=== PATIENT | male | born 1985 | race Two or more races ===

== ENCOUNTER 2025-06-12 13:42 | Observation (INO) ==
--- NOTE | 2025-06-12 14:45 | Emergency Department Note ---
Impression & Plan Appendicitis ED Provider Note CHIEF COMPLAINT: Abdominal and back pain HISTORY OF PRESENTING ILLNESS: This 39-year-old male patient presents to the emergency department with his significant other for evaluation of right sided abdominal pain as well as right flank pain. Symptoms started at 1 PM yesterday. Movement makes the pain worse and the symptoms are getting progressively worse. Denies any fevers. Denies nausea or vomiting. Denies chest pain or SOB. Denies any urinary symptoms or problems with his BMs. He denies any chronic abdominal problems or abdominal surgeries. He has not taken anything for his symptoms yet other than omeprazole 20 mg x 1 dose. He ate 3 slices of bread and had tea at 9:30 am. He then ate rice at 12 pm and had water at 1:30 or 2 pm (maximum 200 ml per patient). REVIEW OF SYSTEMS: See HPI for pertinent positives and pertinent negatives. ALLERGIES: NKDA MEDICATIONS: Levothyroxine, cholesterol medication, Singulair PAST MEDICAL HISTORY: Hypothyroidism, high cholesterol, allergic rhinitis PHYSICAL EXAM: VITALS: Vitals are noted on the nurse's note and reviewed by myself. GENERAL: Non toxic, in no acute distress, non-diaphoretic. SKIN: Capillary refill <2 sec. EYES: PERRLA. EOMI. Conjunctivae without injection, sclerae without icterus. NOSE: Patent without discharge. MOUTH: Mucous membranes moist. Uvula midline. Airway patent. NECK: Supple without nuchal rigidity. HEART: Regular rate and rhythm without murmurs gallops or rubs. LUNGS: Clear to auscultation bilaterally without wheezes, rales or rhonchi. No retractions or accessory muscle use. ABDOMEN: Positive bowel sounds x 4. Normal tympanic percussion. Soft, tender to palpation on the right side of the abdomen, but worse in the right lower quadrant. No masses or hepatosplenomegaly. Lopez sign negative. No CVA tenderness. No guarding, rigidity, or rebound tenderness. MUSCULOSKELETAL: No gross musculoskeletal defects. NEURO: Patient was alert and oriented. No focal neurological deficits. DIFFERENTIAL DIAGNOSIS: Differential diagnosis includes hepatitis, pancreatitis, cholecystitis, cholelithiasis, appendicitis, kidney stone, pyelonephritis, UTI, gastritis, gastroenteritis, mesenteric adenitis, obstruction, constipation, hernia, abdominal abscess, perforation, diverticulitis, IBD, ischemic colitis, abdominal aortic aneurysm, testicular torsion, prostatitis, or others. ED COURSE AND MEDICAL DECISION MAKING: MEDICATIONS GIVEN: 1 L normal saline solution bolus. Tylenol 1000 mg IV. Pepcid 20 mg IV. Zofran 4 mg IV. Morphine 4 mg IV. Zosyn 4.5 g IV. INTERPRETATION OF LABS: I interpreted the labs with full lab results as below in the lab section of this note. Laboratory results pertinent to the emergent complaint are discussed in the MDM section below. The patient was advised to follow up with their PCP and/or specialist(s) for further outpatient monitoring and management of any abnormal results. INTERPRETATION OF IMAGING: Imaging studies were interpreted by myself and read by radiology as per the imaging section of this note. The patient was advised to follow up with their PCP and/or specialist(s) for further outpatient management of any non-emergent abnormal findings. CT scan of the abdomen and pelvis with IV contrast showed acute appendicitis with no evidence for perforation or abscess. There is a minimal amount of pelvic ascites. CONSULTATIONS: Dr. Grimes of general surgery MDM SUMMARY: The patient was seen during a time of extreme volume and extreme acuity. Nursing triage protocols were initiated with IV lock, labs, and/or imaging studies conducted by protocol in the triage area. The patient was initially evaluated in a triage room and then re-evaluated once they were taken back to an exam room. The patient started with right sided abdominal and flank pain yesterday at 1 PM. Symptoms are getting progressively worse. The patient was given IV fluids and medicated as above for his symptoms. White blood cell count elevated at 12.90. Hemoglobin slightly low at 13.2. Platelet count normal at 243. Glucose 118, but CMP otherwise normal. Lipase normal. Urinalysis with trace glucose, but otherwise normal. CT scan of the abdomen and pelvis with IV contrast showed acute appendicitis with no evidence for perforation or abscess. There is a minimal amount of pelvic ascites. The patient was given Zosyn's 4.5 g IV. I spoke with Dr. Grimes of general surgery who presented to the emergency department for further evaluation of the patient. The patient has elected to undergo conservative treatment with IV antibiotics rather than surgical intervention. The patient will be admitted by general surgery for further evaluation and treatment. Please refer to their dictation for further details. The patient's care was transferred in stable condition. DIAGNOSIS: Acute appendicitis Past Med/Surg History Problem List (Updated 06/13/25 @ 00:38 by Kaity Sanders PA-C) Appendicitis (Acute) Social History Smoking Status: Never smoker Preferred Language: Vietnamese Feels Safe at Home: Yes Allergies Allergies Allergy/AdvReac Type Severity Reaction Status Date / Time No Known Allergies Allergy Verified 06/12/25 20:06 Home Meds Home Medications Medication Instructions Recorded Confirmed levothyroxine 100 mcg tablet See Rx Instructions .Route .COMPLEX 06/12/25 06/12/25 montelukast 10 mg tablet 10 mg PO HS 06/12/25 06/12/25 rosuvastatin 10 mg tablet 10 mg PO HS 06/12/25 06/12/25 Results & Data (ED) Vital Signs Vital Signs - 24 hr 06/12/25 13:43 Temperature 36.6 C Temperature Source Temporal Artery Scan Pulse Rate 85 Respiratory Rate 18 Blood Pressure 130/89 Blood Pressure Mean 102 Pulse Oximetry 97 Sepsis Recent Fever Within 48 Hours No Sepsis New/Unexplained Change in Mental Status N/A Sepsis Action Taken by Nursing No Action Required Laboratory Data 06/12/25 14:35 06/12/25 14:35 Lab Results 06/12/25 Range/Units 14:35 WBC 12.90 H (4.8-10.8) K/ul RBC 4.39 L (4.70-6.10) M/uL Hgb 13.2 L (14.0-18.0) g/dl Hct 38.5 L (42.0-52.0) % MCV 87.7 (80.0-100.0) fL MCH 30.1 (25.0-34.0) pg MCHC 34.3 (32.0-36.0) g/dL RDW Std Deviation 43.0 (36.4-46.3) fL RDW Coeff of Seema 13.4 (11.5-14.5) % Plt Count 243 (130-400) K/uL MPV 10.7 (9.4-12.4) fL Immature Gran % (Auto) 0.3 % Neut % (Auto) 83.8 % Lymph % (Auto) 9.5 % [place] % (Auto) 5.3 % Eos % (Auto) 0.6 % Baso % (Auto) 0.5 % Neut # (Auto) 10.81 H (1.40-6.50) K/uL Lymph # (Auto) 1.22 (1.20-3.40) K/uL [place] # (Auto) 0.69 H (0.11-0.59) K/uL Eos # (Auto) 0.08 (0.00-0.50) K/uL Baso # (Auto) 0.06 (0.00-0.20) K/uL Immature Gran # (Auto) 0.04 (0.01-0.20) K/uL Sodium 137 (136-145) mmol/L Potassium 3.9 (3.5-5.1) mmol/L Chloride 103 (98-107) mmol/L Carbon Dioxide 28 (21-32) mmol/L Anion Gap 6 (3-11) BUN 10 (6-23) mg/dl Creatinine 0.96 (0.6-1.4) mg/dl Est Cr Clr Drug Dosing 94.1 ml/min eGFR 103.76 BUN/Creatinine Ratio 10.4 (10-20) Glucose 118 H (70-99(Fasting)) mg/dl Calcium 9.5 (8.6-10.3) mg/dl Total Bilirubin 0.6 (0.2-1.0) mg/dl AST 16 (13-39) U/L ALT 20 (7-52) U/L Alkaline Phosphatase 75 (34-104) U/L Total Protein 7.6 (6.0-8.3) gm/dl Albumin 4.4 (3.4-5.0) gm/dl Globulin 3.2 (2.5-4.0) gm/dl Albumin/Globulin Ratio 1.4 (0.9-2) Lipase 12 (11-82) U/L Urine Color Yellow Urine Appearance Clear (Clear) Urine pH 7.5 (4.5-7.5) Ur Specific [place] 1.003 (1.000-1.030) Urine Protein Negative (Negative) Urine Glucose (UA) Trace H (Negative) Urine Ketones Negative (Negative) Urine Blood Negative (Negative) Urine Nitrite Negative (Negative) Urine Bilirubin Negative (Negative) Urine Urobilinogen Negative (Negative) Ur Leukocyte Esterase Negative (Negative) Urine Comment Administered Medications Piperacillin Sod/Tazobactam Sod (Zosyn) 4.5 gm in 100 mls @ 25 mls/hr IV Q8H [facility]; Protocol Stop: 06/22/25 21:59 Last Admin: 06/12/25 22:44 Dose: 25 mls/hr Documented By: alisia Lactated Ringer's (Lr) 1,000 mls @ 80 mls/hr IV .[id number] LETICIA Stop: 06/15/25 20:16 Last Admin: 06/12/25 20:28 Dose: 80 mls/hr Documented By: alisia Morphine Sulfate (Morphine Sulfate 4 Mg/Ml 1 Ml Carp\Vial) 1 - 2 mg IV Q3H PRN PRN Reason: Pain Stop: 06/26/25 20:16 Last Admin: 06/12/25 23:10 Dose: 2 mg Documented By: alisia Discontinued Medications Sodium Chloride (Nss) 1,000 mls @ 999 mls/hr IV .[id number] ONE Stop: 06/12/25 15:57 Last Infusion: 06/12/25 17:38 Dose: Infused Documented By: Admin: 06/12/25 16:27 Dose: 999 mls/hr Documented By: Acetaminophen (Ofirmev) 1,000 mg in 100 mls @ 400 mls/hr IV NOW STA Stop: 06/12/25 15:11 Last Infusion: 06/12/25 17:38 Dose: Infused Documented By: Admin: 06/12/25 16:27 Dose: 400 mls/hr Documented By: Famotidine (Pepcid 20mg Iv Push) 20 mg in 5 mls @ 2.5 mls/min IV NOW STA Stop: 06/12/25 14:58 Last Admin: 06/12/25 16:28 Dose: 2.5 mls/min Documented By: Piperacillin Sod/Tazobactam Sod (Zosyn) 4.5 gm in 100 mls @ 200 mls/hr IV NOW ONE; Protocol Stop: 06/12/25 17:21 Last Infusion: 06/12/25 18:16 Dose: Infused Documented By: G Admin: 06/12/25 17:37 Dose: 200 mls/hr Documented By: Ioversol (Optiray 320 100ml) 94 ml IV ONCE ONE Stop: 06/12/25 16:21 Last Admin: 06/12/25 16:20 Dose: 94 ml Documented By: ELMER Morphine Sulfate (Morphine Sulfate 4 Mg/Ml 1 Ml Carp\Vial) 4 mg IV NOW STA Stop: 06/12/25 16:54 Last Admin: 06/12/25 17:37 Dose: 4 mg Documented By: Ondansetron HCl (Ondansetron Inj 2 Mg/Ml 2 Ml Vial) 4 mg IV NOW STA Stop: 06/12/25 14:58 Last Admin: 06/12/25 16:27 Dose: 4 mg Documented By: Imaging Data Radiologist's Impression: Abdomen/Pelvis CT 06/12/25 14:57 Clinical History: Right-sided abdominal pain Technique: Axial computed tomography images were obtained of the abdomen and pelvis after the administration of intravenous contrast. No prior CT is available for comparison. Findings: The liver is overall of normal size, attenuation, and contour with no sign of cirrhosis or significant fatty infiltration. No liver mass lesion is seen. The portal vein is patent. The gallbladder appears unremarkable. No bile duct dilatation is noted. The spleen is of normal size. No focal splenic lesion is evident. The pancreas appears normal with no sign of acute or chronic pancreatitis and no mass lesion noted. The pancreatic duct is of normal caliber. The adrenal glands appear unremarkable. No definite renal or proximal ureteral calculi are seen on this contrast-enhanced study. There is no hydronephrosis or perinephric stranding. No renal mass lesion is identified. The aorta is of normal caliber. No abdominal adenopathy is seen. The stomach appears normal. There is no sign of small bowel obstruction. The colon appears unremarkable. The appendix is dilated and thick-walled with adjacent soft tissue stranding, measuring 12 mm in diameter. No free intraperitoneal air is identified. There is a small amount of free pelvic fluid No distal ureteral or bladder calculi are seen. The bladder is decompressed. The iliac arteries are of normal caliber. No pelvic adenopathy is noted. The lungs bases appear clear. No fracture is identified. No focal osseous lesion is seen Impression: 1. Acute appendicitis. There is no sign of perforation or abscess formation 2. Minimal amount of pelvic ascites ACT 112: Positive. There are findings on this exam that require communication between the performing entity and the patient following Patient Test Result Information Act ([place] ACT 112) guidelines. Electronically signed by Amarjit Brooke 06-12-2025 4:35 PM Discharge Plan Visit Data Chief Complaint: Abdominal Pain Stated Complaint: ABD/BACK PAIN ED Provider: Bernabe Mckeon ED Midlevel Provider: Kaity Sanders Discharge Problem: Appendicitis Patient Disposition: Admitted As Inpatient Condition: Fair Discharge Instructions Interventions: ED Discharge Assessment Last Done: 06/12/25 20:13 Discharge Problem: Appendicitis Qualifiers: Appendicitis type: acute appendicitis
[2025-06-12 15:12] LABS: Hematocrit (blood only) 38.5 % (42.0-52.0); Hemoglobin 13.2 g/dl (14.0-18.0); Immature Granulocytes # (auto) 0.04 K/uL (0.01-0.20); Immature Granulocytes % (auto) 0.3 %; Mean Corpuscular Hemoglobin 30.1 pg (25.0-34.0); Mean Corpuscular Volume 87.7 fL (80.0-100.0); Platelet Count 243 K/uL (130-400); RDW Standard Deviation 43.0 fL (36.4-46.3); Red Blood Count 4.39 M/uL (4.70-6.10); White Blood Count 12.90 K/ul (4.8-10.8)
[2025-06-12 15:24] LABS: Appearance Urine Clear (Clear); Glucose Urine UA Trace (Negative)
[2025-06-12 15:29] LABS: Alanine Aminotransferase 20.0 U/L (7-52); Albumin Globulin Ratio 1.4 (0.9-2); Albumin Level 4.4 gm/dl (3.4-5.0); Alkaline Phosphatase 75.0 U/L (34-104); Anion Gap 6.0 (3-11); Bilirubin,Total 0.6 mg/dl (0.2-1.0); Blood Urea Nitrogen 10.0 mg/dl (6-23); Calcium 9.5 mg/dl (8.6-10.3); Carbon Dioxide 28.0 mmol/L (21-32); Chloride 103.0 mmol/L (98-107); Creatinine Clr Calc Pharmacy 94.1 ml/min; Globulin 3.2 gm/dl (2.5-4.0); Glucose 118.0 mg/dl (70-99(Fasting)); Lipase 12.0 U/L (11-82); Potassium 3.9 mmol/L (3.5-5.1); Sodium 137.0 mmol/L (136-145); Total Protein 7.6 gm/dl (6.0-8.3)
[2025-06-12] MEDS: OPTIRAY 320 100ml IV ONE (16:20)
[2025-06-12] MEDS: ONDANSETRON INJ 2 MG/ML 2 ML VIAL IV STA (16:27)
[2025-06-12] MEDS: ACETAMINOPHEN 1,000 MG/100 ML VIAL IV STA (16:27)
[2025-06-12] MEDS: SODIUM CHLORIDE 0.9% 1,000 ML IV ONE (16:27)
[2025-06-12] MEDS: FAMOTIDINE 20MG IV PUSH 20 MG/5 ML SYR IV STA (16:28)
--- NOTE | 2025-06-12 16:35 | CT Scan Report ---
Clinical History: Right-sided abdominal pain Technique: Axial computed tomography images were obtained of the abdomen and pelvis after the administration of intravenous contrast. No prior CT is available for comparison. Findings: The liver is overall of normal size, attenuation, and contour with no sign of cirrhosis or significant fatty infiltration. No liver mass lesion is seen. The portal vein is patent. The gallbladder appears unremarkable. No bile duct dilatation is noted. The spleen is of normal size. No focal splenic lesion is evident. The pancreas appears normal with no sign of acute or chronic pancreatitis and no mass lesion noted. The pancreatic duct is of normal caliber. The adrenal glands appear unremarkable. No definite renal or proximal ureteral calculi are seen on this contrast-enhanced study. There is no hydronephrosis or perinephric stranding. No renal mass lesion is identified. The aorta is of normal caliber. No abdominal adenopathy is seen. The stomach appears normal. There is no sign of small bowel obstruction. The colon appears unremarkable. The appendix is dilated and thick-walled with adjacent soft tissue stranding, measuring 12 mm in diameter. No free intraperitoneal air is identified. There is a small amount of free pelvic fluid No distal ureteral or bladder calculi are seen. The bladder is decompressed. The iliac arteries are of normal caliber. No pelvic adenopathy is noted. The lungs bases appear clear. No fracture is identified. No focal osseous lesion is seen Impression: 1. Acute appendicitis. There is no sign of perforation or abscess formation 2. Minimal amount of pelvic ascites ACT 112: Positive. There are findings on this exam that require communication between the performing entity and the patient following Patient Test Result Information Act ([place] ACT 112) guidelines. Electronically signed by Amarjit Brooke 06-12-2025 4:35 PM
--- NOTE | 2025-06-12 17:24 | History & Physical Report ---
Date of Service June 12, 2025 Assessment & Plan (1) Appendicitis: Plan: -AF VSS -hemodynamically stable -WBC 12 -no appendicolith -discussed in detail with patient options and he wishes to try conservative treatment -discussed risks of perforation and possible surgical intervention - IVF and IV abx -observation History of Present Illness Primary Care Provider: [facility] This is a 39-year-old male with right sided abdominal/flank pain for 24 hours. He denies fevers.nausea or vomiting. He denies chest pain or SOB. ACT scan shows acute appendicitis without an appendicolith. Allergies Allergy/AdvReac Type Severity Reaction Status Date / Time No Known Allergies Allergy Verified 06/12/25 14:57 Past Med/Surg History Problem List (Updated 06/12/25 @ 17:25 by Pedro Luis Grimes MD) Appendicitis Social History Smoking Status: Never smoker Preferred Language: Spanish Feels Safe at Home: Yes Review of Systems no fever and no chills no problem reported no problem reported no cough and no dyspnea no chest pain + abdominal pain; no nausea, no vomiting and no change in bowel habits no dysuria no localized weakness and no generalized weakness no behavioral changes Physical Exam Constitutional: WD/WN, vitals as above Eyes: no scleral abnormality ENMT: external ear and nose normal, oropharynx normal Neck: trachea midline Respiratory: normal respiratory effort Cardiovascular: Rate/Rhythm: regular rate and regular rhythm Gastrointestinal (Abdomen): Inspection/Auscultation: abdomen normal to inspection; abdomen not distended Percussion/Palpation: + abdomen tender and abdomen soft; no guarding and abdomen not rigid Musculoskeletal: Head/Neck/Chest: normocephalic and head atraumatic Skin: no rashes, warm and dry Results & Data Vital Signs (Past 12 Hours) Vital Signs Temp Pulse Resp BP Pulse Ox 06/12/25 13:43 36.6 C 85 18 130/89 97 Diagnostic Findings Clinical History: Right-sided abdominal pain Technique: Axial computed tomography images were obtained of the abdomen and pelvis after the administration of intravenous contrast. No prior CT is available for comparison. Findings: The liver is overall of normal size, attenuation, and contour with no sign of cirrhosis or significant fatty infiltration. No liver mass lesion is seen. The portal vein is patent. The gallbladder appears unremarkable. No bile duct dilatation is noted. The spleen is of normal size. No focal splenic lesion is evident. The pancreas appears normal with no sign of acute or chronic pancreatitis and no mass lesion noted. The pancreatic duct is of normal caliber. The adrenal glands appear unremarkable. No definite renal or proximal ureteral calculi are seen on this contrast-enhanced study. There is no hydronephrosis or perinephric stranding. No renal mass lesion is identified. The aorta is of normal caliber. No abdominal adenopathy is seen. The stomach appears normal. There is no sign of small bowel obstruction. The colon appears unremarkable. The appendix is dilated and thick-walled with adjacent soft tissue stranding, measuring 12 mm in diameter. No free intraperitoneal air is identified. There is a small amount of free pelvic fluid No distal ureteral or bladder calculi are seen. The bladder is decompressed. The iliac arteries are of normal caliber. No pelvic adenopathy is noted. The lungs bases appear clear. No fracture is identified. No focal osseous lesion is seen Impression: 1. Acute appendicitis. There is no sign of perforation or abscess formation 2. Minimal amount of pelvic ascites
[2025-06-12] MEDS: MoRPHine SULFATE 4 MG/ML 1 ML CARP\\VIAL IV STA (17:37)
[2025-06-12] MEDS: PIPERACILLIN/TAZOBACTAM 4.5 GM/100 ML BAG IV ONE (17:37)
[2025-06-12] MEDS ORDERED: ONDANSETRON INJ 2 MG/ML 2 ML VIAL IV PRN (20:17)
[2025-06-12] MEDS: LACTATED RINGER'S 1,000 ML IV SCH (20:28)
[2025-06-12] MEDS: PIPERACILLIN/TAZOBACTAM 4.5 GM/100 ML BAG IV SCH (22:44)
[2025-06-12] MEDS: MoRPHine SULFATE 4 MG/ML 1 ML CARP\\VIAL IV PRN (23:10)
[2025-06-13 07:31] LABS: Hematocrit (blood only) 36.9 % (42.0-52.0); Hemoglobin 12.3 g/dl (14.0-18.0); Immature Granulocytes # (auto) 0.02 K/uL (0.01-0.20); Immature Granulocytes % (auto) 0.2 %; Mean Corpuscular Hemoglobin 29.0 pg (25.0-34.0); Mean Corpuscular Volume 87.0 fL (80.0-100.0); Platelet Count 220 K/uL (130-400); RDW Standard Deviation 42.7 fL (36.4-46.3); Red Blood Count 4.24 M/uL (4.70-6.10); White Blood Count 8.53 K/ul (4.8-10.8)
--- NOTE | 2025-06-13 09:43 | Surgery Progress Note ---
Date of Service June 13, 2025 Assessment & Plan (1) Appendicitis: Plan: some improvement begin clears AF WBC 9 will keep om IVC abx if not resolved by AM likely will proceed with lap appy NPO past MN Admission and Anticipated Discharge Date Admission Date: June 12, 2025 Subjective patient feels a little better AF VSS WBC normal Hungry Review of Systems Constitutional: no fever and no chills Respiratory: no cough and no dyspnea Cardiovascular: no chest pain Gastrointestinal: + abdominal pain; no nausea, no vomiting and no change in bowel habits Genitourinary: no dysuria Neurologic: no localized weakness and no generalized weakness Psychiatric: no behavioral changes Physical Exam Constitutional: WD/WN, vitals as above Eyes: no scleral abnormality Respiratory: normal respiratory effort Cardiovascular: Rate/Rhythm: regular rate and regular rhythm Gastrointestinal (Abdomen): Inspection/Auscultation: abdomen normal to inspection and normal bowel sounds; abdomen not distended Percussion/Palpation: + abdomen tender and abdomen soft; no guarding and abdomen not rigid Musculoskeletal: Head/Neck/Chest: normocephalic and head atraumatic Skin: no rashes, warm and dry Results & Data Vital Signs (Past 12 Hours) Vital Signs Temp Pulse Resp BP Pulse Ox O2 Del Method 06/13/25 07:08 37.0 C 69 14 124/76 98 Room Air (1) Appendicitis Appendicitis type: acute appendicitis
[2025-06-13] MEDS: ACETAMINOPHEN 325 MG TAB PO PRN (21:23)
[2025-06-14] MEDS ORDERED: DEXAMETHASONE SOD INJ 4 MG/ML VIAL ONE (08:56)
[2025-06-14] MEDS ORDERED: LIDOCAINE 2% 2 ML VIAL/AMP(20MG/ML) INFIL ONE (08:56)
[2025-06-14] MEDS ORDERED: PROPOFOL IV EMULSION 10 MG/ML 20 ML VIAL IV ONE (08:56)
[2025-06-14] MEDS ORDERED: ONDANSETRON INJ 2 MG/ML 2 ML VIAL ONE (08:56)
[2025-06-14] MEDS ORDERED: MEPERIDINE HCL 25 MG/ML CARP/VIAL IV PRN (08:57)
[2025-06-14] MEDS ORDERED: DexMEDEtomidine HCL IV 100 MCG/ML VIAL IV ONE (08:57)
[2025-06-14] MEDS ORDERED: MoRPHine SULFATE 10 MG/ML CARP/VIAL IV PRN (08:57)
[2025-06-14] MEDS ORDERED: ONDANSETRON INJ 2 MG/ML 2 ML VIAL IV PRN (08:57)
[2025-06-14] MEDS ORDERED: ROCURONIUM BROMIDE 10 MG/ML 5 ML VIAL IV ONE (08:57)
[2025-06-14] MEDS ORDERED: MIDAZOLAM HCL 1 MG/ML 2ML VIAL ONE (08:57)
[2025-06-14] MEDS ORDERED: ATROPINE SULFATE 0.1 MG/ML 10ML SYR IV PRN (08:57)
--- NOTE | 2025-06-14 08:57 | Anesthesiology Consultation ---
Date of Service June 14, 2025 Assessment & Plan (1) Appendicitis: Chart Review Chart Review: Acceptable Risk for Surgery Consults Requested none ASA [id number] Proposed Anesthesia Anesthesia Type: General (RSI) Risk / Benefits Reviewed With: PT / POA / Parent / Guardian, Accepts Plan and Informed Consent Obtained History Surgery Operation Date: 06/14/25 09:30 Proposed Procedures p Laparoscopic Appendectomy - Pedro Luis Grimes MD Height/Weight Height: 5 ft 6 in Weight: 72.802 kg Allergies Allergy/AdvReac Type Severity Reaction Status Date / Time No Known Allergies Allergy Verified 06/12/25 20:06 Medications Home Medications Medication Instructions Recorded Confirmed Last Taken levothyroxine 100 mcg tablet See Rx Instructions .Route .COMPLEX 06/12/25 06/12/25 06/12/25 montelukast 10 mg tablet 10 mg PO HS 06/12/25 06/12/25 06/11/25 rosuvastatin 10 mg tablet 10 mg PO HS 06/12/25 06/12/25 06/11/25 Active Medications Generic Name Dose Route Start Last Admin Trade Name Freq PRN Reason Stop Dose Admin Acetaminophen 650 mg 06/12/25 20:17 06/13/25 21:23 Acetaminophen 325 Mg Tab PO 07/12/25 20:16 650 mg Q4H PRN Administration pain/fever Piperacillin Sod/Tazobactam Sod 4.5 gm in 100 mls @ 25 mls/hr 06/12/25 22:00 06/14/25 05:58 Zosyn IV 06/22/25 21:59 25 mls/hr Q8H LETICIA Administration Protocol Lactated Ringer's 1,000 mls @ 80 mls/hr 06/12/25 20:17 06/14/25 09:07 Lr IV 06/15/25 20:16 Infused .[id number] LETICIA Infusion Morphine Sulfate 1 - 2 mg 06/12/25 20:17 06/12/25 23:10 Morphine Sulfate 4 Mg/Ml 1 Ml Carp\Vial IV 06/26/25 20:16 2 mg Q3H PRN Administration Pain NPO Date Last Intake of Fluids: 06/13/25 Time Last Intake of Fluids: 22:00 Date Last Intake of Solids: 06/13/25 Time Last Intake of Solids: 17:00 Past Medical History Medical History (Updated 06/14/25 @ 08:56 by Emely Lynch DO) Seasonal allergic rhinitis Hypothyroidism Hyperlipidemia Exercise / Class Metabolic Activity 1 > 8 Run/Swim/Ski/Tennis Past Surgical History Surgical History (Updated 06/14/25 @ 09:25 by Emely Lynch DO) Hx of tonsillectomy Past Anesthesia History No Hx of Anesthesia Complications and No Family Hx of Anesthesia Complications History of PONV No Hx of PONV and No Hx of Motion Sickness Social History Smoking Status: Never smoker Hx Alcohol Use: No Hx Substance Use: No Physical Exam Vital Signs Last Vital Signs Temp 36.9 C 06/14/25 07:31 Pulse 72 06/14/25 07:31 Resp 14 06/14/25 07:31 BP 117/75 06/14/25 07:31 Pulse Ox 99 06/14/25 07:31 O2 Del Method Room Air 06/14/25 07:31 ENMT Mouth: no TMJ abnormality Thyromental Distance: > or= 3.5 Finger Breadths Mallampati Class: II Neck normal visual inspection and trachea midline; neck extension not limited Respiratory normal respiratory effort Auscultation: lungs clear to auscultation bilaterally Cardiovascular Rate/Rhythm: regular rate and regular rhythm Heart Sounds: no murmur Musculoskeletal Spine: normal cervical ROM Extremities: full ROM of extremities Neurologic moves all extremities Psychiatric Orientation: alert and oriented x 3 Testing Laboratory Results 06/13/25 06:50 06/12/25 14:35 Urine Color Yellow 06/12/25 14:35 Urine Appearance Clear (Clear) 06/12/25 14:35 Urine pH 7.5 (4.5-7.5) 06/12/25 14:35 Ur Specific [place] 1.003 (1.000-1.030) 06/12/25 14:35 Urine Protein Negative (Negative) 06/12/25 14:35 Urine Glucose (UA) Trace (Negative) H 06/12/25 14:35 Urine Ketones Negative (Negative) 06/12/25 14:35 Urine Nitrite Negative (Negative) 06/12/25 14:35 Ur Leukocyte Esterase Negative (Negative) 06/12/25 14:35 (1) Appendicitis Appendicitis type: acute appendicitis
--- NOTE | 2025-06-14 08:59 | Surgery Progress Note ---
Date of Service June 14, 2025 Assessment & Plan (1) Appendicitis: Plan: still with pain not worse but not much better will plan lap appendectomy risks explained in detail Admission and Anticipated Discharge Date Admission Date: June 12, 2025 Subjective still with pain took po fairly well AF VSS Physical Exam Constitutional: WD/WN, vitals as above Respiratory: normal respiratory effort Cardiovascular: Rate/Rhythm: regular rate and regular rhythm Gastrointestinal (Abdomen): Inspection/Auscultation: abdomen normal to inspection and normal bowel sounds; abdomen not distended Percussion/Palpation: + abdomen tender and abdomen soft; no guarding Musculoskeletal: Head/Neck/Chest: normocephalic and head atraumatic Results & Data Vital Signs (Past 12 Hours) Vital Signs Temp Pulse Resp BP BP Pulse Ox O2 Del Method 06/14/25 07:31 36.9 C 72 14 117/75 99 Room Air 06/13/25 22:08 36.9 C 64 16 120/75 99 Room Air (1) Appendicitis Appendicitis type: acute appendicitis
[2025-06-14] MEDS ORDERED: SUCCINYLCHOLINE CHLORIDE 20 MG/ML 10 ML VIAL IV ONE (09:15)
[2025-06-14] MEDS: BUPIVACAINE/EPINEPHRINE 0.5% MPF 1:200,000 30 ML VIAL ONE (09:50)
[2025-06-14] MEDS ORDERED: SUGAMMADEX SODIUM 200 MG/2 ML VIAL IV ONE (10:03)
[2025-06-14] MEDS ORDERED: KETOROLAC 30 MG/ML VIAL ONE (10:04)
--- NOTE | 2025-06-14 10:23 | Operative Report ---
Post Operative Report Pre & Post Diagnosis Operation Date: 06/14/25 09:30 Pre-Op Diagnosis: Acute Appendicitis Post-Op Diagnosis: Acute Appendicitis I identified the patient and participated in the time-out.: Yes Procedure Operation Date: 06/14/25 09:30 Actual Procedures p Laparoscopic Appendectomy(Not Applicable) - Pedro Luis Grimes MD Surgeon Pedro Luis Grimes MD Horizontal Boring Mill Set Up Operator none Estimated Blood Loss 7 Findings Consistent with Post-Op Diagnosis Specimens Appendix to pathology Drains none Anesthesia Type General Complications none Disposition Accompanied Patient To Recovery: No Disposition: Recovery Room Indications This is a 39-year-old male admitted with an acute appendicitis. This was an appendicitis and appendicolith. He was tried on a trial of IV antibiotics. He made some progress but continued to have pain and therefore we elected therefore to proceed with the appendectomy. Discussed the risks in detail with him. Description of Procedure The patient was taken to the OR and underwent excellent general anesthesia. Their abdomen was prepped and draped in normal sterile fashion. A transverse supraumbilical incision was made, towel clamps were used to create tension on the abdominal wall as an 11 port was placed in the supraumbilical position, inserted with visualization gently into the peritoneal cavity. Good pneumoperitoneum was achieved to about 15 mmHg pressure. Once this was done, a visualized 12 mm left lower quadrant port , a 5mm suprapubic port , and a 5mm right upper quadrant port were all placed in normal fashion. Patient was then placed in head down and rolled to the left. A good diagnostic lap was performed. They had obvious acute appendicitis. The cecum was grasped with an atraumatic grasper. A grasper was then was then used to grasp the tip of the appendix. The mesoappendix was splayed open and a harmonic scalpel was used to take down the mesoappendix. The base of the appendix was identified and an Endo LANE stapler was used to transect the appendix at its base. A endobag was then inserted through the left lower quadrant port and the appendix was placed into the bag, The bag was removed through the left lower quadrant port. The appendix was sent for pathologic evaluation. The pneumoperitoneum was re- established after the 12 mm port was replaced. Saline was then used to irrigate the abdomen. There was no active bleeding nor any other abnormalities noted in the abdomen. The patient was then placed back in neutral position, the ports were removed and the pneumoperitoneum decompressed. The 12mm port fascia was then closed using a 0 Vicryl. The skin was then anesthetized with 0.5% Marcaine with epinephrine local. Interrupted Vicryl is used to close the skin. Dermabond was used to reinforce the incisions. The patient tolerated procedure without complications was sent to the postop recovery period of observation. They will be sent to the floor for the rest of their care. I attest to the content of the Intraoperative Record and any orders documented therein. Any exceptions are noted below.
--- NOTE | 2025-06-14 10:53 | Anesthesiology Progress Note ---
Date of Service June 14, 2025 Anesthesia Post Procedure Vital Signs Vital Signs: Temp Pulse Pulse Resp BP BP Pulse Ox 06/14/25 10:52 36.5 C 50 L 19 123/83 100 06/14/25 10:45 54 L 21 114/80 100 06/14/25 10:35 58 L 22 128/80 100 06/14/25 10:28 36.3 C L 62 20 121/84 100 06/14/25 07:31 36.9 C 72 14 117/75 99 06/13/25 22:08 36.9 C 64 16 120/75 99 06/13/25 14:59 37.0 C 68 16 126/78 99 O2 Del Method O2 Flow Rate 06/14/25 10:52 Room Air 06/14/25 10:45 Room Air 06/14/25 10:35 Oxymask 6 06/14/25 10:28 Oxymask 6 06/14/25 07:31 Room Air 06/13/25 22:08 Room Air 06/13/25 14:59 Room Air Pain Intensity Abdomen: Pain Intensity: 4 Transfer of Care Handoff Completed per policy Notes Mental Status: alert / awake / arousable Patient Amnestic to Procedure: Yes Nausea / Vomiting: adequately controlled Pain: adequately controlled Airway Patency, RR, SpO2: stable & adequate BP & HR: stable & adequate Hydration State: stable & adequate Anesthetic Complications: no major complications apparent and Pt Satisfied with anesthetic care
[2025-06-14] MEDS: MoRPHine SULFATE 4 MG/ML 1 ML CARP\\VIAL IV PRN (14:38)
[2025-06-14] MEDS: MONTELUKAST SODIUM 10 MG TABLET PO SCH (21:19)
[2025-06-14] MEDS: ROSUVASTATIN CALCIUM 10 MG TAB PO SCH (21:20)
[2025-06-15 03:47] VITALS: RESP 16; TEMP 98.2
[2025-06-15] MEDS: LEVOTHYROXINE SODIUM 100 MCG TABLET PO SCH (05:50)
[2025-06-15] MEDS: COUGH DROP (SUGAR FREE) LOZ 24 LOZ/1 BOX BUCCAL PRN (05:55)
[2025-06-15 08:05] VITALS: BP 120/77; PULSE 74; O2SAT 99
--- NOTE | 2025-06-15 10:08 | Discharge Summary ---
Date of Service June 15, 2025 Admission HPI Per Admitting Provider This is a 39-year-old male with right sided abdominal/flank pain for 24 hours. He denies fevers.nausea or vomiting. He denies chest pain or SOB. ACT scan shows acute appendicitis without an appendicolith. Principal Diagnosis acute appendicitis Discharge Exam Constitutional WD/WN, vitals as above cooperative and comfortable; no acute distress and not ill appearing Respiratory normal respiratory effort; no respiratory distress, no labored breathing and no retractions Gastrointestinal (Abdomen) Inspection/Auscultation: abdomen normal to inspection and + abdominal surgical incision (c/d/i with dermabond); abdomen not distended Percussion/Palpation: + abdomen tender (at incision sites appropriate postop) and abdomen soft; no guarding and abdomen not rigid Skin no rashes, warm and dry Psychiatric A+Ox3, euthymic affect Discharge Data Allergies Allergy/AdvReac Type Severity Reaction Status Date / Time No Known Allergies Allergy Verified 06/12/25 20:06 Consultations 06/12/25 17:30 ED Decision to Admit Stat Procedures Performed Operation Date: 06/14/25 09:30 Actual Procedures p Laparoscopic Appendectomy(Not Applicable) - Pedro Luis Grimes MD Ordered Studies 06/12/25 14:57 CT abd pelvis IV con only Stat Hospital Course (1) Appendicitis: Patient was admitted to hospital from emergency department for trial of conservative management with IV antibiotics. His pain did not significantly im prove after two days of IV antibiotics so he was taken to operating room for laparoscopic appendectomy. He was found to have uncomplicated appendicitis and tolerated procedure without difficulty. He was transferred back to medical/surgical floor for postoperative care. His diet was advanced as tolerated, activity as tolerated, IV Zosyn continued and pain management as needed. Patient was discharged home on POD # 1 in stable condition. Total Time Total Time Spent Total Time Spent (In Minutes): 30 Total Time Includes: Examination of the Patient, Discharge Planning and Medication Reconciliation Discharge Plan Discharge Items Patient Disposition: Home - Self-Care Reason For Visit: APPENDICITIS Discharge Diagnosis: acute appendicitis Condition on Discharge: Good Activity: Per Instructions section Non-emergency contact: Primary Care Provider and Surgeon Call non-emergency contact if: you have any medication questions, your pain is not controlled, your pain is worsening, you have a fever, your temperature is above 101, your wound has increased redness, your wound has increased drainage and your wound pain has increased Follow-up/Referrals: Rehana Tony PA-C [Physician Jet Dyeing Machine Tender] - (two weeks) [facility] [Primary Care Provider] - Diet: Regular Addtl Attending Provider Instructions: Post-Surgical ~Discharge Instructions Activity Recommendations: - lifting limitation: (20 pounds for 2-3 weeks), - exercise/sex/sports limit: (nonstrenuous for 2 weeks), - driving or machine use limit: (none for 1 week), - Shower/bathe limit: (may shower beginning tomorrow, no submerging incisions underwater for two weeks) Diet: - Resume previous diet SPECIAL CARE INSTRUCTIONS: - May shower . Let water run over area and pat dry. - Leave surgical glue on incisions, this will fall off on its own. - Call the surgeon's office with any questions or concerns - - (ex. temperature higher than 101 degrees F, excessive bleeding or pain). MEDICATIONS: - Resume previous medications unless instructed otherwise by your surgeon. - May alternate extra strength Tylenol and Ibuprofen as needed for mild to moderate pain - 650 mg Tylenol every 6 hours as needed - Ibuprofen 600 mg every 6 hours with food - Percocet 1 every 6 hours, as needed for moderate to severe pain - Recommend daily stool softener (Colace) while taking narcotic pain medication . Drink plenty of water daily. FOLLOW UP VISIT: - If not already scheduled, please call the office to schedule a two week follow-up appointment. Office number Pending Studies at Discharge: Yes (pathology, will be reviewed at postop visit) Stand-Alone Forms: [facility], Work/School Release, Smoking Cessation Medications and DC Order Prescriptions: New oxycodone-acetaminophen 5-325 mg tablet 1 tab PO Q6H PRN (Reason: pain) Qty: 10 0RF Rx Instructions: postop treatment, initial treatment, s/p laparoscopic appendectomy Continued levothyroxine 100 mcg Tablet See Rx Instructions .ROUTE .COMPLEX Rx Instructions: TAKES 50 MCG ON SUNDAY & SUNDAY MORNINGS, THEN 100 MG ON SUN, MON, TUES, WED & TH MORNINGS montelukast 10 mg Tablet 10 mg PO HS rosuvastatin 10 mg Tablet 10 mg PO HS Discharge Orders: Discharge Order (Routine); Ordered 06/15/25 Ordered By: Rehana Tony Admission Data Admit Date/Time: 06/12/25 17:31 Attending Provider: Pedro Luis Grimes Admit Provider: Pedro Luis Grimes Primary Care Provider: [facility] Other Providers: Pedro Luis Grimes
[2025-06-19] MEDS ORDERED: LEVOTHYROXINE SODIUM 50 MCG TABLET PO SCH (06:30)
== END 2025-06-15 13:12 | disposition home or self-care (01) ==
LOC: ED 13:42 → 3W 13:42 → 3E 06-14 15:44